=== PATIENT | female | born 1970 | race Caucasian/White ===

== ENCOUNTER → 2018-01-26 | Outpatient (CLI) | payer BC | LOC: OD 17:16 | PROVIDERS: ATTEND Specialist | DX: N92.0 Excessive and frequent menstruation with regular cycle (principal) | CPT/HCPCS: 88305 ==

== ENCOUNTER 2018-01-30 05:51 | Day surgery (SDC) | payer BC ==
[2018-01-28 10:30] LABS: HEMATOCRIT 39.3 % (36.0-47.0); HEMOGLOBIN 12.9 g/dL (12.0-15.5); MEAN CORPUSCULAR HEMOGLOBIN 27.2 pg (27.0-33.4); MEAN CORPUSCULAR HGB CONC 32.9 g/dL (32.0-36.0); MEAN CORPUSCULAR VOLUME 83 fl (80-97); PLATELET COUNT 227 10^3/uL (150-450); RED BLOOD COUNT 4.75 10^6/uL (3.72-5.28); RED CELL DISTRIBUTION WIDTH 16.8 % (11.5-14.0); WHITE BLOOD COUNT 6.9 10^3/uL (4.0-10.5)
[2018-01-28 10:59] LABS: APPEARANCE,URINE SLIGHTLY-CLOUDY; BILIRUBIN,URINE NEGATIVE (NEGATIVE); COLOR,URINE YELLOW; GLUCOSE, URINE NEGATIVE (NEGATIVE); KETONES,URINE NEGATIVE (NEGATIVE); LEUKOCYTE ESTERASE,URINE NEGATIVE (NEGATIVE); NITRITE,URINE NEGATIVE (NEGATIVE); PROTEIN,URINE NEGATIVE (NEGATIVE); URINE SPECIFIC GRAVITY 1.021; UROBILINOGEN,URINE NEGATIVE mg/dL (<2.0)
[2018-01-28 11:06] LABS: ANION GAP 8 (5-19); BLOOD UREA NITROGEN 15 mg/dL (7-20); CALCIUM 9.6 mg/dL (8.4-10.2); CARBON DIOXIDE 29 mmol/L (22-30); CHLORIDE 105 mmol/L (98-107); GLUCOSE 85 mg/dL (75-110); POTASSIUM 4.3 mmol/L (3.6-5.0)
[~2018-01-30 05:51] MED LIST: CEFAZOLIN 1 GM/D5W RTU 1 GM/50 ML RTUPB IV PRN; LACTATED RINGERS 1000 ML IV PRN; LIDOCAINE 0.5% INJ-PF (5 MG/ML) 50 ML SDV SUBCUT PRN
[2018-01-30] MEDS ORDERED: LIDOCAINE 1% INJ-PF (10 MG/ML) 30 ML SDV ONE (07:39)
[2018-01-30] MEDS ORDERED: LIDOCAINE 2% INJ-PF (20 MG/ML) 10 ML AMPUL ONE (07:59)
[2018-01-30] MEDS ORDERED: MIDAZOLAM 2 MG/2 ML INJ ONE (08:00)
[2018-01-30] MEDS ORDERED: PROPOFOL INJ 200 MG/20 ML VIAL IV ONE (08:00)
[2018-01-30] MEDS ORDERED: ACETAMINOPHEN 100 ML IV ONE (08:00)
[2018-01-30] MEDS ORDERED: FENTANYL CITRATE INJ/PF 100 MCG/2 ML AMPUL ONE (08:00)
[2018-01-30] MEDS ORDERED: DEXAMETHASONE SOD PHOSPHATE INJ 4 MG/1 ML VIAL ONE (08:01)
[2018-01-30] MEDS ORDERED: ONDANSETRON HCL INJ/PF 4 MG/2 ML SDV ONE (08:01)
[2018-01-30] MEDS ORDERED: MORPHINE SULFATE 10 MG/ML INJ IV PRN (08:31)
[2018-01-30] MEDS ORDERED: DIPHENHYDRAMINE HCL 50 MG/ML VIAL IV PRN (08:31)
[2018-01-30] MEDS ORDERED: OXYCODONE-ACETAMINOPHEN 5-325 MG TABLET PO PRN ×3 (08:31→09:11)
[2018-01-30] MEDS ORDERED: PROMETHAZINE HCL INJ 25 MG/1 ML VIAL IV PRN ×2 (08:31)
[2018-01-30] MEDS ORDERED: FENTANYL CITRATE INJ/PF 100 MCG/2 ML AMPUL IV PRN ×3 (08:31)
[2018-01-30] MEDS ORDERED: MEPERIDINE HCL/PF INJ 25 MG/1 ML DISP.SYRIN IV PRN (08:31)
[2018-01-30] MEDS: FENTANYL CITRATE INJ/PF 100 MCG/2 ML AMPUL ONE ×2 (08:50→08:55)
[2018-01-30] MEDS ORDERED: KETOROLAC TROMETHAMINE INJ/PF 30 MG/1 ML SDV ONE (09:07)
[2018-01-30] MEDS ORDERED: PROMETHAZINE HCL INJ 25 MG/1 ML VIAL IM PRN (09:14)
[2018-01-30] MEDS: MORPHINE SULFATE 10 MG/ML INJ INJ PRN ×2 (09:40→09:45)
[2018-01-30] MEDS ORDERED: MORPHINE SULFATE 10 MG/ML INJ ONE (09:47)
--- NOTE | 2018-01-30 10:16 | OPERATIVE REPORT E ---
Operative Report NAME: DENNY GUTIERREZ : 1970 AGE: 47Y DATE OF SURGERY: 01/30/2018 ROOM: PREOPERATIVE DIAGNOSIS: Menorrhagia. POSTOPERATIVE DIAGNOSIS: Menorrhagia. OPERATION: Hysteroscopy, Novasure ablation. SURGEON: HARRY GUAN M.D. ANESTHESIA: LMAC paracervical block. COMPLICATIONS: None. FINDINGS: Normal endometrial cavity. Measurements are in the chart. INDICATIONS FOR PROCEDURE: The patient had profuse profound menorrhagia, unresponsive to usual outpatient management. Outpatient biopsy was benign. The usual risks of bleeding, infection, anesthesia, damage to organs and tissue discussed and the patient understood. PROCEDURE: Patient was taken to the operating room and placed in the modified lithotomy position. After adequate anesthesia was ascertained, prepped and draped in the usual manner for a hysteroscopy. A surgical time-out was performed. EUA was performed. The cervix was dilated with operative hysteroscope. The above-mentioned findings were appreciated. The Novasure was placed, measurements were taken and fired. Good uterine integrity was noted postprocedure as well as preop and good burn noted throughout. The patient was taken to the recovery room in stable condition. DICTATING PHYSICIAN: HARRY GUAN M.D. [id number] PHY#: [id number] ID: [id number] JOB#: [id number] ACCT: [id number] cc:HARRY GUAN M.D. >
[2018-01-30 10:43] VITALS: BP 127/86
[2018-01-30] MEDS ORDERED: SUCCINYLCHOLINE CHLORIDE INJ 200 MG/10 ML VIAL ONE (13:05)
[2018-01-30] MEDS ORDERED: IBUPROFEN 800 MG TABLET PO SCH (14:00)
== END 2018-01-30 10:43 | disposition home or self-care (01) ==
LOC: OROUT 05:51
PROVIDERS: ATTEND Specialist
DX: N92.0 Excessive and frequent menstruation with regular cycle (principal); F17.210 Nicotine dependence, cigarettes, uncomplicated
CPT/HCPCS: 86900; 86901; 36415; 86850; 85027; 81025; 80048; 81001; 58563; J2250; J0690; J1100; J3010; J3490 ×2; J1885; J2270; J0330; J2405; J2704; J0131; 952